=== PATIENT | male | born 1975 | race Two or more races ===

== ENCOUNTER 2020-04-13 11:18 | Outpatient (CLI) | payer OTHER | END 2020-04-13 11:31 | disposition home or self-care (01) | LOC: LAB 11:18 | PROVIDERS: ATTEND Urology | DX: N20.0 Calculus of kidney (principal); N39.0 Urinary tract infection, site not specified; F52.9 Unspecified sexual dysfunction not due to a substance or known physiological condition; N20.1 Calculus of ureter ==

== ENCOUNTER 2020-04-13 12:28 | Outpatient (CLI) | payer OTHER | END 2020-04-13 12:34 | disposition home or self-care (01) | LOC: RAD 12:28 | PROVIDERS: ATTEND Urology | DX: N20.0 Calculus of kidney (principal) ==

== ENCOUNTER 2020-04-27 10:54 | Outpatient (CLI) | payer OTHER | END 2020-04-27 11:07 | disposition home or self-care (01) | LOC: LAB 10:54 | PROVIDERS: ATTEND Urology | DX: N20.0 Calculus of kidney (principal) ==

== ENCOUNTER 2021-03-09 09:27 | Outpatient (CLI) | payer OTHER | END 2021-03-09 09:33 | disposition home or self-care (01) | LOC: RAD 09:27 | PROVIDERS: ATTEND Urology | DX: N20.1 Calculus of ureter (principal) ==